=== PATIENT | female | born 1970 | race African-American/Black ===

== ENCOUNTER 2021-08-30 11:10 | Emergency (ER) | payer BC, SELFPAY ==
[2021-08-30] MEDS ORDERED: Ketorolac Tromethamine 30 MG/ML VIAL ONE (11:39)
== END 2021-08-30 11:47 | disposition home or self-care (01) ==
LOC: CSHERS 11:10
DX: M62.830 Muscle spasm of back (principal); I48.91 Unspecified atrial fibrillation
CPT/HCPCS: 96372; 99283; J1885

== ENCOUNTER 2021-09-21 09:33 | Emergency (ER) | payer SELFPAY | END 2021-09-21 10:40 | disposition home or self-care (01) | LOC: CSHERS 09:33 | DX: U07.1 COVID-19 (principal); I10 Essential (primary) hypertension | CPT/HCPCS: 99283 ==

== ENCOUNTER 2021-12-24 11:11 | Emergency (ER) | payer SELFPAY ==
[2021-12-24 12:10] LABS: #Basophils 0.1 10x3/uL (0.0-0.2); #Eosinphils 0.2 10x3/uL (0.0-0.5); #Monocytes 0.4 10x3/uL (0.0-1.1); #Neutrophils 4.8 10x3/uL (1.5-8.4); %Basophils 0.7 % (0.0-2.0); %Monocytes 5.9 % (0.0-10.0); %Neutrophils 64.1 % (40.0-75.0); Hemoglobin 13.4 g/dL (12.0-15.5); Mean Corpuscular HGB CONC 33.8 g/dL (32.0-36.0); Mean Corpuscular Hemoglobin 28.3 pg (27.0-33.0); Mean Corpuscular Volume 83.5 fl (81.6-98.3); Platelet Count 257 10x3/uL (150-450); RBC Distribution Width 12.7 % (11.5-14.5); Red Blood Cell (RBC) Count 4.74 10x6/uL (3.90-5.03); White Blood Cell (WBC) Count 7.4 10x3/uL (3.5-10.5)
[2021-12-24 12:19] LABS: ALT (SGPT) 9 U/L (8-55); AST (SGOT) 11 U/L (5-34); Albumin 3.9 g/dL (3.5-5.0); Alkaline Phosphatase 95 U/L (40-110); Anion Gap 10 mmol/L (10-20); BUN (Urea Nitrogen) 15 mg/dL (7.0-18.7); Bilirubin, Total 0.4 mg/dL (0.2-1.2); Calc. Creatinine Clearance 0 mL/min (70-130); Carbon Dioxide 27 mmol/L (22-29); Chloride 108 mmol/L (98-107); Estimated GFR 81; Glucose 106 mg/dL (70-105); Potassium 4.4 mmol/L (3.5-5.1); Protein, Total 6.9 g/dL (6.0-8.3); Sodium 141 mmol/L (136-145)
[2021-12-24] MEDS ORDERED: Dexamethasone 4 MG TAB ONE (13:20)
== END 2021-12-24 13:23 | disposition home or self-care (01) ==
LOC: CSHERS 11:11
DX: B34.9 Viral infection, unspecified (principal); I10 Essential (primary) hypertension; I48.91 Unspecified atrial fibrillation
CPT/HCPCS: 36415; 71045; 80053; 84484; 85025; 93005; J8540

== ENCOUNTER 2022-09-23 17:02 | Emergency (ER) | payer SELFPAY ==
[2022-09-23 17:40] LABS: #Basophils 0.1 10x3/uL (0.0-0.2); #Eosinphils 0.2 10x3/uL (0.0-0.5); #Monocytes 0.4 10x3/uL (0.0-1.1); #Neutrophils 4.5 10x3/uL (1.5-8.4); %Eosinophils 2.6 % (0.0-6.0); %Lymphocytes 25.5 % (18.0-47.0); %Monocytes 6.1 % (0.0-10.0); %Neutrophils 64.5 % (40.0-75.0); Hemoglobin 13.2 g/dL (12.0-15.5); Mean Corpuscular HGB CONC 33.5 g/dL (32.0-36.0); Mean Corpuscular Volume 83.5 fl (81.6-98.3); Mean Platelet Volume 10.2 fl (7.4-10.4); Platelet Count 228 10x3/uL (150-450); RBC Distribution Width 12.6 % (11.5-14.5); Red Blood Cell (RBC) Count 4.72 10x6/uL (3.90-5.03)
[2022-09-23 17:53] LABS: ALT (SGPT) 13 U/L (8-55); AST (SGOT) 13 U/L (5-34); Alkaline Phosphatase 90 U/L (40-110); Anion Gap 12 mmol/L (10-20); BUN (Urea Nitrogen) 12 mg/dL (7.0-18.7); Bilirubin, Total 0.4 mg/dL (0.2-1.2); Calc. Creatinine Clearance 0 mL/min (70-130); Calcium 9.4 mg/dL (7.8-10.44); Carbon Dioxide 22 mmol/L (22-29); Chloride 110 mmol/L (98-107); Estimated GFR 83; Globulin 2.9 g/dL (2.4-3.5); Glucose 96 mg/dL (70-105); Lipase 49 U/L (8-78); Protein, Total 6.9 g/dL (6.0-8.3); Sodium 140 mmol/L (136-145)
== END 2022-09-23 18:22 | disposition home or self-care (01) ==
LOC: CSHERS 17:02
DX: R07.89 Other chest pain (principal); I10 Essential (primary) hypertension; I48.91 Unspecified atrial fibrillation
CPT/HCPCS: 36415; 71045; 80053; 83690; 83735; 84484; 85025; 93005

== ENCOUNTER 2022-12-26 15:40 | Emergency (ER) | payer SELFPAY ==
[2022-12-26] MEDS ORDERED: Ibuprofen 200 MG TAB ONE (16:19)
== END 2022-12-26 17:00 | disposition home or self-care (01) ==
LOC: CSHERS 15:40
DX: S80.12XA Contusion of left lower leg, initial encounter (principal); M25.561 Pain in right knee; I10 Essential (primary) hypertension; W19.XXXA Unspecified fall, initial encounter

== ENCOUNTER 2024-01-22 17:14 | Emergency (ER) | payer BC, SELFPAY ==
[2024-01-22] MEDS ORDERED: Ketorolac Tromethamine 30 MG (1 mL) VIAL ONE (19:17)
== END 2024-01-22 19:31 | disposition home or self-care (01) ==
LOC: CSHERS 17:14
DX: T18.128A Food in esophagus causing other injury, initial encounter (principal); I10 Essential (primary) hypertension; W44.F3XA Food entering into or through a natural orifice, initial encounter
CPT/HCPCS: 70360; 71045; 96372; J1885

== ENCOUNTER 2025-01-30 21:39 | Emergency (ER) | payer BC, OTHER ==
[2025-01-30 22:21] LABS: #Basophils 0.07 10x3/uL (0.0-0.2); #Eosinophils 0.20 10x3/uL (0.0-0.5); #Monocytes 0.44 10x3/uL (0.0-1.1); #Neutrophils 3.70 10x3/uL (1.5-8.4); %Basophils 1.0 % (0.0-2.0); %Eosinophils 2.9 % (0.0-6.0); %Lymphocytes 35.4 % (18.0-47.0); %Monocytes 6.4 % (0.0-10.0); %Neutrophils 54.0 % (40.0-75.0); Hematocrit 38.3 % (34.9-44.5); Hemoglobin 13.0 g/dL (12.0-15.5); Mean Corpuscular Hemoglobin 28.8 pg (27.0-33.0); Mean Corpuscular Volume 84.9 fL (81.6-98.3); Platelet Count 251 10x3/uL (150-450); Red Blood Cell (RBC) Count 4.51 10x6/uL (3.90-5.03); White Blood Cell (WBC) Count 6.86 10x3/uL (3.5-10.5)
[2025-01-30] MEDS ORDERED: Ketorolac Tromethamine 30 MG (1 mL) VIAL ONE (22:21)
[2025-01-30 22:40] LABS: Troponin I Less than 0.010 ng/mL (< 0.028)
[2025-01-30 22:51] LABS: ALT (SGPT) 10 U/L (Less than 34); AST (SGOT) 12 U/L (11-34); Albumin 3.8 g/dL (3.1-4.5); Alkaline Phosphatase 91 U/L (40-110); Anion Gap 11 mmol/L (10-20); BUN (Urea Nitrogen) 15 mg/dL (9.8-20.1); Bilirubin, Total 0.2 mg/dL (0.3-1.2); Calc. Creatinine Clearance 0 mL/min (70-130); Calcium 9.5 mg/dL (7.8-10.44); Carbon Dioxide 24 mmol/L (22-29); Chloride 109 mmol/L (98-107); Globulin 3.1 g/dL (2.4-3.5); Glucose 113 mg/dL (70-105); Potassium 3.9 mmol/L (3.5-5.1); Sodium 140 mmol/L (136-145)
== END 2025-01-30 23:05 | disposition home or self-care (01) ==
LOC: CSHERS 21:39
DX: R07.89 Other chest pain (principal); I48.91 Unspecified atrial fibrillation; I10 Essential (primary) hypertension
CPT/HCPCS: 36415; 71045; 80053; 84484; 85025; 93005; 93010; J1885